=== PATIENT | female | born 1940 | race Caucasian/White ===

== ENCOUNTER 2022-03-08 14:33 | Emergency (ER) | payer MEDICARE ==
[~2022-03-08] VITALS: Ht 162.6 cm; Wt 81.4 kg
[2022-03-08 15:01] VITALS: BP 122/51
[2022-03-08] MEDS ORDERED: NAPR-56 PO (15:12)
== END 2022-03-08 15:33 | disposition home or self-care (01) ==
LOC: ER 14:34
DX: M70.21 Olecranon bursitis, right elbow (principal); M19.90 Unspecified osteoarthritis, unspecified site; Z88.5 Allergy status to narcotic agent; Y93.89 Activity, other specified
CPT/HCPCS: 99282

== ENCOUNTER 2024-09-13 20:30 | Emergency (ER) | payer MEDICARE ==
[~2024-09-13] VITALS: Ht 162.6 cm; Wt 59.1 kg
[2024-09-13 20:34] VITALS: BP 153/54; PULSE 74; RESP 15; O2SAT 98
--- NOTE | 2024-09-13 21:53 | Physician Documentation ---
History of Present Illness ~ Chief Complaint: Wound Stated Complaint: INFECTED R ELBOW Time Seen by MD: 21:01 HPI 83-year-old female presents to the ED with a complaint of a infection in her right elbow. She was placed on cefdinir the local clinic for suspected septic bursitis. Says that the elbow has started draining clear serous fluid. Denies any fevers or other associated symptoms including nausea vomiting Tetanus within 5 years?: No Medication Reconciliation Allergies: Coded Allergies: diphenhydramine (Verified Allergy, Unknown, 09/13/24) meperidine (Verified Allergy, Unknown, 09/13/24) morphine (Verified Allergy, Unknown, 09/13/24) Scheduled Doxycycline Monohydrate (Doxycycline Monohydrate), 1 CAP PO Q12H Past Medical History Past Medical History: Arthritis, Bustits Past Surgical History: orthopedic surgeries, other Alcohol Use: None Drug Use: none Lives In: Home Review of Systems All Other Systems at this time: Reviewed and Negative ROS As stated above in the HPI, otherwise all systems are reviewed and negative. Physical Exam Vital Signs: Temperature: 97.0, Source: Temporal, Heart Rate: 74, Respiratory Rate: 15, BP: 153/54, Pulse Oximetry: 98, Weight: 59.090 Physical Exam General: Alert, no apparent distress. HEENT: PERRL, EOMI, no injection, moist mucous membranes. Extremities: Normal range of motion, no deformity. In no fluctuance posterior elbow is warm to touch Neurologic: Oriented x4. Psychiatric: Normal mood and affect. Skin: Normal color, warm and dry. No edema, no ecchymosis. Progress Results/Orders Results/Orders Vital Signs 09/13/24 09/13/24 20:34 21:58 Temp 97.0 97.0 Pulse 74 Resp 15 B/P (MAP) 153/54 Pulse Ox 98 Medical Decision Making Findings The change this antibiotic as I do not think the coverage was appropriate for this case. The elbow is draining so therefore I do not see any reason to aspirate it at this time. . She isn't complaining of pain either I am going to place her on Doxycycline Differential Dx:Considerations: Include: Abscess, Cellulitis, Dressing change, Healing wound, Other Departure Disposition: 01 HOME / SELF CARE / HOMELESS Impression: Primary Impression: Wound cellulitis Condition: Stable Discharge Instructions: Elbow Bursitis, [id number] Referrals: NO PRIMARY CARE PROVIDER (PCP) Prescriptions Doxycycline Monohydrate (Doxycycline Monohydrate) 100 Mg Capsule 1 CAP PO Q12H for 10 Days, #20 CAP Prov: CHARAN CASTILLO SECURITIES TELLER 09/13/24 Education Educated: Patient Educated regarding: diagnosis Signature Scribe Signature: f Attestation: Scribed for Charan Castillo Cota by Charan Alexis NP . 09/13/24 21:55 CHARAN CASTILLO NP Sep 13, 2024 21:53
[2024-09-13] MEDS ORDERED: DOXY-462 PO (21:55)
[2024-09-13 21:58] VITALS: TEMP 97
== END 2024-09-13 22:01 | disposition home or self-care (01) ==
LOC: ER 20:30
DX: L03.113 Cellulitis of right upper limb (principal); M19.90 Unspecified osteoarthritis, unspecified site; Z88.5 Allergy status to narcotic agent
CPT/HCPCS: 99283